=== PATIENT | male | born 1980 | race Caucasian/White ===

== ENCOUNTER 2017-01-30 22:30 | Observation (INO) ==
[2017-01-31 01:04] LABS: PT Patient Result 10.6 SECS; Partial Thromboplastin Time 25.2 SECS (0-40)
[2017-01-31 01:12] LABS: Alanine Aminotransferase 63 U/L (16-61); Albumin 3.7 G/DL (3.4-5.0); Alkaline Phosphatase 60 U/L (45-117); Aspartate Amino Transferase 29 U/L (0-37); Blood Urea Nitrogen 19 MG/DL (7-18); Calcium 8.9 MG/DL (8.5-10.1); Glucose 275 MG/DL (74-106); Osmolality,Calculated 288.5 MOS/KG (273-304); Potassium 3.9 MMOL/L (3.5-5.1); Sodium 139 MMOL/L (136-145); Total Protein 7.4 G/DL (6.4-8.3)
[2017-01-31 01:13] LABS: Apearance,Urine CLEAR (Clear); Bilirubin,Urine Negative (Negative); Blood, Urine Negative (Negative); Glucose,Urine (UA) >=500 mg/dL (Negative); Ketones,Urine 20 mg/dL (Negative); Mucus,Urine Occasional /LPF (Occasional); Nitrite,Urine Negative (Negative); Protein,Urine Negative; RBC,Urine 5 /HPF (0-4); Squamous Epithelial Cell,Urine Occasional /HPF (0-10); Urine Color Yellow (Yellow); Urine Specific Gravity 1.038 (1.001-1.035); Urine Urobilinogen < 2.0 EU/DL (0.2-1.0); WBC,Urine 8 /HPF (0-6)
[2017-01-31 01:21] LABS: Barbiturates Screen,Urine Negative (Negative); Basophils # 0.1 10*3/uL (0.0-0.2); Basophils % 0.5 % (0.0-0.8); Benzodiazepines Screen,Urine Negative (Negative); Cannabinoid Screen,Urine Negative (Negative); Eosinophils # 0.2 10*3/uL (0.0-0.87); Eosinophils % 1.6 % (0.00-10.9); Hematocrit 44.9 VOL% (42.0-52.0); Immature Granulocytes % 0.7 %; Immature Granulocytes Absolute 0.07 #; Lymphocytes # 2.7 10*3/uL (1.4-4.0); Lymphocytes % 27.8 % (21.2-54.2); Mean Corpuscular HGB Conc 35.6 GM/DL (32-36); Mean Corpuscular Hemoglobin 31 PG (27-34); Mean Corpuscular Volume 85.9 FL (87-102); Mean Platelet Volume 10.8 FL (9.6-12.0); Monocytes # 0.7 10*3/uL (0.11-0.8); Monocytes % 7.5 % (1.7-12.7); Neutrophils # 6.1 10*3/uL (1.4-7.4); Neutrophils % 61.9 % (38.7-73.9); Opiate Screen,Urine Negative (Negative); Phencyclidine Screen,Urine Negative (Negative); Platelet Count 255 T/CUMM (130-400); Red Blood Count 5.23 MC/CUMM (3.8-5.5); Red Cell Distribution Width 12.5 % (9.3-17.3); White Blood Count 9.9 T/CUMM (4-12)
[2017-01-31] MEDS ORDERED: LABETALOL 20 MG/4 ML SYRINGE IV PRN (06:20)
[2017-01-31] MEDS ORDERED: GLUCAGON 1 MG VIAL IM PRN (06:51)
[2017-01-31] MEDS ORDERED: DEXTROSE 50% 25 GM/50 ML VIAL IV PRN (06:51)
[2017-01-31] MEDS ORDERED: INSULIN LISPRO 100 UNIT/ML SUBCUT SCH ×2 (07:30→17:00)
[2017-01-31 07:40] LABS: Cholesterol 115 MG/DL (50-200); HDL Cholesterol 44 MG/DL (40-60); Risk Ratio 2.61; Triglycerides 76 MG/DL (2-150); Troponin I Only < 0.015 NG/ML (0.00-0.045); VLDL CHOLESTEROL 15.2 MG/DL
[2017-01-31] MEDS: LISINOPRIL 10 MG TABLET PO SCH ×2 (08:38→08:44)
[2017-01-31] MEDS ORDERED: LEVOFLOXACIN 250 MG TABLET PO SCH (11:30)
[2017-01-31 15:31] VITALS: BP 147/92
[2017-01-31 16:21] LABS: Free T4 (Free Thyroxine) 1.42 NG/DL (0.76-1.46); Thyroid Stimulating Hormone 1.01 uIU/ml (0.358-3.74)
[2017-01-31] MEDS ORDERED: ASPIRIN EC 81 MG TABLET PO SCH (16:30)
[2017-01-31] MEDS ORDERED: sitaGLIPtin 100 MG TABLET PO SCH (18:30)
== END 2017-01-31 19:00 | disposition home or self-care (01) ==
LOC: N.ED 22:30 → SUATTDRO 01-31 02:00 → INTOOBSV 01-31 02:00 → N.EDINP 01-31 02:00 → N.5E 01-31 02:37
PROVIDERS: ADMIT Internal Medicine Infectious Disease; ATTEND Internal Medicine